=== PATIENT | male | born 2000 | race Caucasian/White ===

== ENCOUNTER 2023-11-26 10:22 | Emergency (ER) | payer OTHER ==
[2023-11-26 10:52] VITALS: RESP 18
--- NOTE | 2023-11-26 10:52 | ED ---
Abdominal Pain HPI - General Chief Complaint: Abdominal Pain Stated Complaint: Abd Pain Time Seen by Provider: 11/26/23 10:24 Source: patient, EMS, RN notes reviewed Mode of arrival: EMS Limitations: no limitations - History of Present Illness Initial Comments: This is a 23-year-old male who presents to the emergency department for abdominal pain. States that the pain started 1 to 2 days ago, however he does have a longstanding history of abdominal pain, which has previously been attributed to ulcers. Also states that pain has been worse in the past. Currently being treated with prilosec, sucralfate, and Bentyl. He did have nausea, and EMS gave him Zofran on arrival which was helpful. Reports constipation over the last couple of days as well. Currently at [facility] for cocaine use. MD Complaint: abdominal pain - Related Data Previous Rx's Medication Instructions Recorded Ondansetron Odt [Zofran Odt] 4 mg PO Q8HR PRN #20 tab 11/26/23 RX: Pantoprazole Sodium 40 mg PO DAILY #30 tab 11/26/23 Allergies Allergy/AdvReac Type Severity Reaction Status Date / Time Penicillins AdvReac Anaphylaxis Verified 11/26/23 10:26 Review of Systems ROS Statement: Those systems with pertinent positive or pertinent negative responses have been documented in the HPI. ROS Other: All systems not noted in ROS Statement are negative. Past Medical History Additional Past Medical History / Comment(s): Ulcers x2. Murmur. Intussusception . History of Any Multi-Drug Resistant Organisms: None Reported Past Surgical History: No Surgical Hx Reported Past Psychological History: No Psychological Hx Reported Smoking Status: Current every day smoker, Never smoker Past Alcohol Use History: None Reported Past Drug Use History: None Reported General Exam Limitations: no limitations General appearance: alert, in no apparent distress Head exam: Present: atraumatic, normocephalic, normal inspection Respiratory exam: Present: normal lung sounds bilaterally. Absent: respiratory distress, wheezes, rales, rhonchi, stridor Cardiovascular Exam: Present: regular rate, normal rhythm, normal heart sounds. Absent: systolic murmur, diastolic murmur, rubs, gallop, clicks GI/Abdominal exam: Present: soft, tenderness (diffuse), normal bowel sounds. Absent: distended Neurological exam: Present: alert, oriented X3, CN II-XII intact Psychiatric exam: Present: normal affect, normal mood Skin exam: Present: warm, dry, intact, normal color. Absent: rash Course Vital Signs 11/26/23 11/26/23 10:23 13:49 Temperature 99.2 F 98.1 F Pulse Rate 85 78 Respiratory 18 18 Rate Blood Pressure 139/81 145/76 O2 Sat by Pulse 96 98 Oximetry Medical Decision Making - Medical Decision Making This is a 23 year old male who presents to the emergency department for abdominal pain. Was pt. sent in by a medical professional or institution? @ -No Did you speak to anyone other than the patient for history? @ -No Did you review nursing and triage notes? @ -Yes, and I agree, it is accurate with regards to the patient's symptoms. Were old charts reviewed? @ -No Differential Diagnosis? @ -Differential Abdominal Pain Men: Appendicitis, cholecystitis, diverticulosis, ischemic bowel, pancreatitis, hepatitis, UTI, gastroenteritis, AAA, incarcerated hernia, bowel obstruction, constipation, inflammatory bowel, hepatitis, peptic ulcer disease, splenic infarction, perforated viscus, testicular torsion, this is not meant to be an all-inclusive list EKG interpreted by me (3pts min.)? @ -Not obtained X-rays interpreted by me (1pt min.)? @ -Not obtained CT interpreted by me (1pt min.)? @ -CT scan of the abdomen and pelvis obtained. My interpretation identifies no evidence of bowel wall thickening or free air. U/S interpreted by me (1pt. min.)? @ -Not obtained What testing was considered but not performed? (CT, X-rays, U/S, labs)? Why? @ -None What meds were considered but not given? Why? @ -None Did you discuss the management of the patient with other professionals? @ -No Did you reconcile home meds? @ -No Was smoking cessation discussed for >3mins.? @ -No Was critical care preformed (if so, how long)? @ -No Were there social determinants of health that impacted care today? How? (Homelessness, low income, unemployed, alcoholism, drug addiction, transportation, low edu. Level, literacy, decrease access to med. care, prison, rehab)? @ -Drug addiction, increasing his risk for health problems and contributing to worsening of overall health status. Was there de-escalation of care discussed even if they declined? (Discuss DNR or withdrawal of care, Hospice)? @ -No What co-morbidities impacted this encounter? (DM, HTN, Smoking, COPD, CAD, Cancer, CVA, Hep., AIDS, mental health diagnosis, sleep apnea, morbid obesity)? @ -Ulcers, polysubstance abuse Was patient admitted / discharged? @ -Discharged. Lab work demonstrates mild leukocytosis and was otherwise unremarkable. CT scan of the abdomen and pelvis obtained revealing no acute process. His pain was well-controlled in the emergency department. He was tolerating oral intake without difficulty. He did request a refill on his pantoprazole. This was provided as well as a prescription for Zofran for any additional nausea. Patient discharged back to [facility] in stable condition. He is advised to slowly advance his diet as tolerated and remain well-hydrated. Undiagnosed new problem with uncertain prognosis? @ -None Drug Therapy requiring intensive monitoring for toxicity (Heparin, Nitro, Insulin, Cardizem)? @ -None Were any procedures done? @ -None Diagnosis/symptom? @ -Abdominal pain Acute, or Chronic, or Acute on Chronic? @ -Acute Uncomplicated (without systemic symptoms) or Complicated (systemic symptoms)? @ -Uncomplicated Side effects of treatment? @ -None Exacerbation, Progression, or Severe Exacerbation] @ -Not applicable Poses a threat to life or bodily function? @ -No Return precautions reviewed in depth, the patient is instructed to return to the emergency department with any new, worsening, or concerning symptoms. Patient verbalized understanding. This case was discussed in detail with the attending ED physician, Dr. Cr. Presentation, findings, and treatment plan discussed in detail as well. - Lab Data Result diagrams: 11/26/23 12:00 11/26/23 11:10 Lab Results 11/26/23 11/26/23 11/26/23 Range/Units 11:10 11:10 12:00 WBC 11.2 H (3.8-10.6) k/uL RBC 4.31 (4.30-5.90) m/uL Hgb 13.4 (13.0-17.5) gm/dL Hct 39.9 (39.0-53.0) % MCV 92.6 (80.0-100.0) fL MCH 31.0 (25.0-35.0) pg MCHC 33.5 (31.0-37.0) g/dL RDW 13.4 (11.5-15.5) % Plt Count 167 (150-450) k/uL MPV 9.0 Neutrophils % 85 % Lymphocytes % 8 % Monocytes % 4 % Eosinophils % 2 % Basophils % 0 % Neutrophils # 9.5 H (1.3-7.7) k/uL Lymphocytes # 0.9 L (1.0-4.8) k/uL Monocytes # 0.5 (0-1.0) k/uL Eosinophils # 0.2 (0-0.7) k/uL Basophils # 0.0 (0-0.2) k/uL Sodium 139 (137-145) mmol/L Potassium 4.0 (3.5-5.1) mmol/L Chloride 105 (98-107) mmol/L Carbon Dioxide 22 (22-30) mmol/L Anion Gap 12 mmol/L BUN 20 (9-20) mg/dL Creatinine 0.89 (0.66-1.25) mg/dL Est GFR (CKD-EPI)AfAm >90 (>60 ml/min/1.73 sqM) Est GFR (CKD-EPI)NonAf >90 (>60 ml/min/1.73 sqM) Glucose 96 (74-99) mg/dL Plasma Lactic Acid Patrick 1.0 (0.7-2.0) mmol/L Calcium 10.2 (8.4-10.2) mg/dL Total Bilirubin 1.0 (0.2-1.3) mg/dL AST 40 (17-59) U/L ALT 70 H (4-49) U/L Alkaline Phosphatase 104 (38-126) U/L Total Protein 8.5 H (6.3-8.2) g/dL Albumin 5.1 H (3.5-5.0) g/dL Amylase 87 (30-110) U/L Lipase 62 (23-300) U/L - Radiology Data Radiology results: report reviewed, image reviewed Disposition Clinical Impression: Abdominal pain Disposition: HOME SELF-CARE Instructions (If sedation given, give patient instructions): Abdominal Pain (ED) Additional Instructions: Return to the emergency department with any new, worsening, or concerning symptoms. Take the Pantoprazole daily. You can take the Zofran up to every 8 hours as needed for nausea and vomiting. Follow up with your primary care provider in 1-2 days. Prescriptions: RX: Pantoprazole Sodium 40 mg PO DAILY #30 tab Ondansetron Odt [Zofran Odt] 4 mg PO Q8HR PRN #20 tab PRN Reason: Nausea And Vomiting Is patient prescribed a controlled substance at d/c from ED?: No Referrals: None,Stated [Primary Care Provider] - 1-2 days Time of Disposition: 13:27
[2023-11-26] MEDS: PANTOPRAZOLE 40 MG/10 ML VIAL IVP STA (10:53)
[2023-11-26] MEDS: FAMOTIDINE 20 MG/2 ML VIAL IV STA (10:56)
[2023-11-26] MEDS: MAG HYDROX/AL HYDROX/SIMETH 30 ML, HYOSCYAMINE ELIXIR 10 ML, LIDOCAINE VISCOUS 2% 10 ML PO STA (11:00)
[2023-11-26] MEDS: SODIUM CHLORIDE 0.9% 1,000 ML IV STA (11:15)
[2023-11-26] MEDS: HYDROmorphone 1 MG/ML 1 ML SYRINGE IVP STA (11:17)
[2023-11-26] MEDS: MORPHINE SULFATE 4 MG/ML SYRINGE IVP STA (11:17)
[2023-11-26 11:34] LABS: ALT 70 U/L (4-49); AST 40 U/L (17-59); African American GFR (CKD) >90 (>60 ml/min/1.73 sqM); Albumin 5.1 g/dL (3.5-5.0); Alkaline Phosphatase 104 U/L (38-126); Amylase 87 U/L (30-110); Anion Gap 12 mmol/L; Blood Urea Nitrogen 20 mg/dL (9-20); Calcium 10.2 mg/dL (8.4-10.2); Carbon Dioxide 22 mmol/L (22-30); Chloride 105 mmol/L (98-107); Glucose 96 mg/dL (74-99); Lipase 62 U/L (23-300); Non-African American GFR(CKD) >90 (>60 ml/min/1.73 sqM); Sodium 139 mmol/L (137-145); Total Protein 8.5 g/dL (6.3-8.2)
--- NOTE | 2023-11-26 12:24 | CT ---
EXAMINATION TYPE: CT abdomen pelvis w con DATE OF EXAM: 11/26/2023 COMPARISON: None INDICATION: abd pain DLP: 742.5 mGycm, Automated exposure control for dose reduction was used. CONTRAST: 100 mL of Isovue 300. Study performed without Oral Contrast TECHNIQUE: Axial images were obtained from above the diaphragm to the pubic rami in the axial plane a t 5 mm thick sections. Reconstructed images are reviewed on the computer in the coronal plane. FINDINGS: Limited CT sections are obtained the lung bases. The lung bases are clear. CT ABDOMEN: Liver: Normal Spleen: Normal Pancreas: Normal Adrenal glands: The adrenal glands are normal. Gallbladder: Normal Kidneys: No masses are evident. No hydronephrosis is present. No cysts are present. No renal stone s evident. Aorta: Normal Inferior vena cava: Normal. CT PELVIS: Loops of bowel within the abdomen and pelvis are normal. This study is performed without oral con trast limiting bowel evaluation. Appendix: Normal as visualized. Urinary bladder: Decompressed and limited. Genitourinary structures: Prostate is unremarkable Osseous structures: No suspicious lytic or sclerotic lesions. IMPRESSION: 1. No suspicious acute changes CT abdomen and pelvis.
[2023-11-26 13:14] LABS: Basophils % (A) 0 %; Eosinophils # (A) 0.2 k/uL (0-0.7); Eosinophils % (A) 2 %; HCT 39.9 % (39.0-53.0); HGB 13.4 gm/dL (13.0-17.5); Lymphocytes # (A) 0.9 k/uL (1.0-4.8); Lymphocytes % (A) 8 %; MCHC 33.5 g/dL (31.0-37.0); MCV 92.6 fL (80.0-100.0); Monocytes # (A) 0.5 k/uL (0-1.0); Monocytes % (A) 4 %; Neutrophils # (A) 9.5 k/uL (1.3-7.7); Neutrophils % (A) 85 %; Platelet Count 167 k/uL (150-450); RBC 4.31 m/uL (4.30-5.90); RDW 13.4 % (11.5-15.5); WBC 11.2 k/uL (3.8-10.6)
[2023-11-26 14:18] VITALS: BP 145/76; PULSE 78; TEMP 98.1
== END 2023-11-26 14:02 | disposition home or self-care (01) ==
LOC: EC 10:22
DX: R10.9 Unspecified abdominal pain (principal); F17.200 Nicotine dependence, unspecified, uncomplicated; Z88.0 Allergy status to penicillin
CPT/HCPCS: 36415; 80053; 82150; 83605; 83690; 85025; 74177; 99285; 96374; 96375 ×2; 96361 ×2; J3490; J1170; C9113; Q9967